=== PATIENT | female | born 1955 | race Caucasian/White ===

== ENCOUNTER 2020-12-01 14:24 | Emergency (ER) | payer SELFPAY ==
[~2020-12-01] VITALS: Ht 162.6 cm; Wt 63.5 kg
[~2020-12-01 14:24] MED LIST: AMIT1TAB92 PO; ESCI-28 PO; LEVO75TA6 PO
[2020-12-01] MEDS ORDERED: KETOROLAC TROMETH 60MG/2ML VIAL IM ONE (17:30)
[2020-12-01 18:11] VITALS: BP 124/76
== END 2020-12-01 18:14 | disposition home or self-care (01) ==
LOC: ER 14:24
DX: R51.9 Headache, unspecified (principal); F41.9 Anxiety disorder, unspecified; F32.9 Major depressive disorder, single episode, unspecified; Z90.49 Acquired absence of other specified parts of digestive tract
CPT/HCPCS: 70450; 96372; 99284; J1885

== ENCOUNTER 2024-09-13 02:00 | Inpatient (IN) | payer OTHER ==
[~2024-09-13] VITALS: Ht 162.6 cm; Wt 63.5 kg
[~2024-09-13 02:00] MED LIST changes: -ESCI-28 PO; +ESCI1TAB36 PO
--- NOTE | 2024-09-13 02:12 | ED.PDOC ---
HPI Comments 68 year old female came to ER via EMS for chest pains. Patient has history of anxiety and fibromyalgia. Patient was asleep and about an hour ago she woke up due to sudden onset chest pains, diffuse, heavy radiating to her back and associated with shortness of breath Chief Complaint: Chest Pains Time Seen by MD: 02:12 Primary Care Provider: AVANI Russell Notes: Nurses Notes Allergies: Coded Allergies: Levofloxacin (Verified Allergy, Unknown, 12/01/20) Lidocaine (Verified Allergy, Unknown, 12/01/20) Sulfa Antibiotics (Verified Allergy, Unknown, 05/06/17) Home Meds Reported Medications Escitalopram Oxalate (ESCITALOPRAM OXALATE) 10 Mg Tab, 10 MG PO, TAB 05/06/17 Levothyroxine Sodium (Levothyroxine Sodium) 75 Mcg Tab, 75 MCG PO, TAB 05/06/17 Amitriptyline HCl (Elavil) 25 Mg Tab, 50 MG PO, TAB 05/06/17 Information Source: Patient Mode of Arrival: EMS Severity: Moderate Timing: Minutes Duration: Since onset Location: Chest (R), Chest (L) Quality: Heavy Onset: At Rest Cardiac Risk Factors: None History of: Similar pain in past Modifying Factors: Nothing Associated Signs and Symptoms: SOB Past Medical History PAST MEDICAL HISTORY: Anxiety, Depression, Thyroid Past Medical History (Other): Fibromyalgia Surgical History: Cholecystectomy TALENT MANAGEMENT SPECIALIST History: No Pertinent TALENT MANAGEMENT SPECIALIST History Family History Family History: Reviewed,noncontributory to illness Social History Smoker: Non-Smoker Alcohol: Denies ETOH Use Drugs: Denies Drug Use Lives In: Home Constitutional: denies: chills, diaphoresis, fatigue, fever, malaise, sweats, weakness, others EENTM: denies: blurred vision, double vision, ear bleeding, ear discharge, ear drainage, ear pain, ear ringing, eye pain, eye redness, hearing loss, mouth pain, mouth swelling, nasal discharge, nose bleeding, nose congestion, nose pain, photophobia, tearing, throat pain, throat swelling, voice changes, others Respiratory: denies: cough, hemoptysis, orthopnea, SOB at rest, shortness of breath, SOB with excertion, stridor, wheezing, others Cardiovascular: reports: chest pain, Dyspnea on exertion; denies: dizzy spells, diaphoresis, edema, irregular heart beat, left arm pain, lightheadedness, palpitations, PND, syncope, others Gastrointestinal: denies: abdomen distended, abdominal pain, blood streaked bowels, constipated, diarrhea, dysphagia, difficulty swallowing, hematemesis, melena, nausea, poor appetite, poor fluid intake, rectal bleeding, rectal pain, vomiting, others Genitourinary: denies: abnormal vagina bleeding, burning, dyspareunia, dysuria, flank pain, frequency, hematuria, incontinence, pain, , vagina discharge, urgency, others Neurological: denies: dizziness, fainting, headache, left sided numbness, left sided weakness, numbness, paresthesia, pre-existing deficit, right sided numbness, right sided weakness, seizure, speech problems, tingling, tremors, weakness, others Musculoskeletal: reports: back pain; denies: gout, joint pain, joint swelling, muscle pain, muscle stiffness, neck pain, others Integumetry: denies: bruises, change in color, change in hair/nails, dryness, laceration, lesions, lumps, rash, wounds, others Allergic/Immunocompromised: denies: Difficulty Healing, Frequent Infections, Hives, Itching, others Hematologic/Lymphatic: denies: anemia, blood clots, easy bleeding, easy bruising, swollen glands, others Endocrine: denies: excessive hunger, excessive sweating, excessive thirst, excessive urination, flushing, intolerance to cold, intolerance to heat, unexplained weight gain, unexplained weight loss, others Psychiatric: denies: anxiety, bipolar disorder, depression, hopeless, panic disorder, schizophrenia, sleepless, suicidal, others Physical Exam General Appearance: No Apparent Distress, Normal HEENT: Normal ENT Inspection, Pharynx Normal, TMs Normal Neck: Full Range of Motion, Non-Tender, Normal, Normal Inspection Respiratory: Chest Non-Tender, Lungs Clear, No Accessory Muscle Use, No Respiratory Distress, Normal Breath Sounds Cardiovascular: No Edema, No JVD, No Murmur, No Gallop, Normal Peripheral Pulses, Regular Rate/Rhythm Breast Exam: Deferred Gastrointestinal: No Organomegaly, Non Tender, No Pulsatile Mass, Normal Bowel Sounds, Soft Genitalia: Deferred Pelvic: Deferred Rectal: Deferred Extremities: No calf tenderness, Normal capillary refill, Normal inspection, Normal range of motion, Non-tender, No pedal edema Musculoskeletal : Apperance: Normal Neurologic: Alert, piggyback clerk II-XII nml as Tested, No Motor Deficits, Normal Affect, Normal Mood, No Sensory Deficits Cerebellar Function: Normal Reflexes: Normal Skin: Dry, Normal Color, Warm Lymphatic: No Adenopathy Was a procedure done? Was a procedure done?: No CP Differential Dx Differential Diagnosis: Angina, Anxiety / Panic Attack, Hyperthyroidism, Hyperventilation Differential Diagnosis: Angina, Chest Wall Pain, Costochondritis, Esophageal reflux/spasm, Gastritis, Myocardial Infarction, Pneumonia X-Ray, Labs, Meds, VS Vital Signs Date Time Temp Pulse Resp B/P (MAP) Pulse Ox O2 Delivery O2 Flow Rate FiO2 09/13/24 02:59 78 09/13/24 02:06 79 09/13/24 02:05 98.2 86 18 156/70 (98) 98 98.2 Lab Test 09/13/24 02:55 09/13/24 02:11 Range/Units Troponin I High Sensitivity < 3 L < 3 L </=34 ng/L White Blood Count 5.9 4.4-10.8 10^3/uL Red Blood Count 4.59 4.0-5.20 10^6/uL Hemoglobin 13.6 12.2-16.2 g/dL Hematocrit 41.7 36.0-46.0 % Mean Corpuscular Volume 90.8 80.0-100.0 fL Mean Corpuscular Hemoglobin 29.7 28.0-32.0 pg Mean Corpuscular Hemoglobin Concent 32.8 32.0-36.0 g/dL Red Cell Distribution Width 14.3 11.8-14.3 % Platelet Count 184 140-450 10^3/uL Mean Platelet Volume 8.6 6.9-10.8 fL Neutrophils (%) (Auto) 55.4 37.0-80.0 % Lymphocytes (%) (Auto) 34.1 10.0-50.0 % Monocytes (%) (Auto) 8.6 0.0-12.0 % Eosinophils (%) (Auto) 1.2 0.0-7.0 % Basophils (%) (Auto) 0.7 0.0-2.0 % Neutrophils # (Auto) 3.3 1.6-8.6 10 ^3/uL Lymphocytes # (Auto) 2.0 0.4-5.4 10 ^3/uL Monocytes # (Auto) 0.5 0-1.3 10 ^3/uL Eosinophils # (Auto) 0.1 0-0.8 10 ^3/uL Basophils # (Auto) 0 0-0.2 10 ^3/uL Nucleated Red Blood Cells 0.0 % Sodium Level 143 136-145 mmol/L Potassium Level 4.4 3.5-5.1 mmol/L Chloride Level 111 H 98-107 mmol/L Carbon Dioxide Level 26 20-31 mmol/L Anion Gap 6 5-15 Blood Urea Nitrogen 13 9-23 mg/dL Creatinine 0.94 0.550-1.02 mg/dL Glomerular Filtration Rate Calc 65 >90 mL/min BUN/Creatinine Ratio 13.8 10.0-20.0 Serum Glucose 106 74-106 mg/dL Calcium Level 9.8 8.7-10.4 mg/dL Current Medications Medications (Trade) Dose Ordered Sig/[place]arrison Route Start Time Stop Time Status Last Admin Aspirin 324 mg ONCE ONCE PO 09/13/24 02:15 09/13/24 02:16 DC 09/13/24 02:31 Time of 1ST Reevaluation: 02:06 Reevaluation 1ST: Unchanged Time of 2ND Reevaluation: 03:24 Reevaluation 2ND: Improved Patient Education/Counseling: Diagnosis, Treatment, Prognosis, Need For Follow Up Family Education/Counseling: No Family Present Additional Information -Reviewed patient's previous visit(s): 05/05- admitted and diagnosed with atypical chest pains 2 anxiety and fibromyalgia - The following tests were ordered, and results were reviewed by me: - Additional information was gathered from interviewing the following independent Historian: - I reviewed and agreed with the following test results read by other provider: - I discussed treatments and results with medical personnel and: patient Comprehensive systems review obtained and negative except for what is stated in the HPI. Departure 1 Departure Time of Disposition: 03:43 Impression: Primary Impression: Unstable angina Disposition: 09 ADMITTED INPATIENT Admit to: Tele Condition: Stable Discharged With: Self Critical Care Note Critical Care Time?: Yes (35 min-critical care time only) Critical care comment: Due to concerns for patients condition deteriorating, the care required my highest level of attention and readiness to intervene. I assessed the patient, reviewed the medical records, ordered the appropriate tests and treatments, then reassessed for results and responsiveness. I communicated with medical personnel and consultants and formulated a plan of care. Total critical care time excludes any procedures Stability Stability form required: No Heart Score Heart Score: Heart Score Response (Comments) Value History Highly Suspicious 2 EKG Repolarization Disturb 1 Age >65 2 Risk Factors 1 or 2 risk factors 1 Troponin Normal limit 0 Total 6 I personally scribed for GISELLE HOGAN MD ([email or web address]) on 09/13/24 at 02:12. Electronically submitted by Earnest Westfall ([facility]). GISELLE HOGAN MD Sep 13, 2024 02:12
--- NOTE | 2024-09-13 02:15 | ECG ---
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
[2024-09-13 02:29] LABS: Basophils # (auto) 0 10 ^3/uL (0-0.2); Basophils % (auto) 0.7 % (0.0-2.0); Eosinophils # (auto) 0.1 10 ^3/uL (0-0.8); Eosinophils % (auto) 1.2 % (0.0-7.0); Hematocrit 41.7 % (36.0-46.0); Hemoglobin 13.6 g/dL (12.2-16.2); Lymphocytes % (auto) 34.1 % (10.0-50.0); Mean Corpuscular Hemoglobin 29.7 pg (28.0-32.0); Mean Corpuscular Hgb Conc. 32.8 g/dL (32.0-36.0); Mean Corpuscular Volume 90.8 fL (80.0-100.0); Monocytes # (auto) 0.5 10 ^3/uL (0-1.3); Monocytes % (auto) 8.6 % (0.0-12.0); Neutrophils # (auto) 3.3 10 ^3/uL (1.6-8.6); Neutrophils % (auto) 55.4 % (37.0-80.0); Platelet Count (auto) 184 10^3/uL (140-450); Red Blood Cells 4.59 10^6/uL (4.0-5.20); Red Cell Distribution Width 14.3 % (11.8-14.3); White Blood Cell 5.9 10^3/uL (4.4-10.8)
[2024-09-13] MEDS: ASPirin 81 mg TAB PO ONE (02:31)
[2024-09-13 02:37] LABS: Potassium 4.4 mmol/L (3.5-5.1); Sodium 143 mmol/L (136-145)
[2024-09-13 02:38] LABS: Anion Gap 6 (5-15); Carbon Dioxide 26 mmol/L (20-31)
[2024-09-13 02:39] LABS: Calcium 9.8 mg/dL (8.7-10.4)
--- NOTE | 2024-09-13 02:41 | DVH ---
CHEST RADIOGRAPH Indication: cp Technique: Single frontal view of the chest was obtained COMPARISON: None FINDINGS: Lines and Tubes: None Lungs: Clear Pleura: No effusion. No pneumothorax. Cardiomediastinal contours: Unremarkable Bones: Unremarkable IMPRESSION: 1. No acute disease.
[2024-09-13 02:43] LABS: Glucose 106 mg/dL (74-106)
[2024-09-13 02:44] LABS: BUN/Creatinine Ratio 13.8 (10.0-20.0); Blood Urea Nitrogen 13 mg/dL (9-23)
[2024-09-13 02:46] LABS: Chloride 111 mmol/L (98-107)
[2024-09-13] MEDS ORDERED: ACETAMINOPHEN 325 MG TAB PO PRN (04:30)
[2024-09-13] MEDS ORDERED: ONDANSETRON HCL 4 MG/2 ML VIAL IV PRN (04:30)
[2024-09-13] MEDS ORDERED: NITROGLYCERIN 0.4 MG SL TAB SL PRN (04:30)
[2024-09-13] MEDS ORDERED: HYDROcodone-ACET 5/325MG TAB PO PRN (04:30)
[2024-09-13] MEDS ORDERED: MORPHINE SULFATE INJ 2 MG/ml SYRG IV PRN (04:30)
[2024-09-13 04:37] VITALS: PULSE 83; RESP 11; O2SAT 100
--- NOTE | 2024-09-13 04:51 | DVHHP2 ---
Admitting Diagnosis: Chest Pain rule out ACS History of Present Illness History Source: Patient Exam Limitations: No limitations HPI Mrs. Jackie Barajas is a 68 year old female with a history of hypercholesteremia , anxiety disorder , fibromyalgia who presents with a chief complaint of chest pains. Patient reports she was asleep and she woke up due to sudden onset chest pains, diffuse, heavy radiating to her back and shoulders and associated with shortness of breath. Patient endorses pain is pressure in nature. Patient endorses she last saw a cardiologists about 6 years ago for chest pain but was cleared. Patient denies SI, nausea, vomiting, headaches, palpitations, abdominal pain, fevers, chills. Patient admitted for further evaluation. Home Meds Reported Medications Alendronate Sodium (Alendronate Sodium) 70 Mg Tab, 1 TAB PO QWEEKLY 09/13/24 Amitriptyline HCl (Amitriptyline Hydrochlori) 50 Mg Tab, 1 TAB PO 09/13/24 Citalopram Hydrobromide (Citalopram Hydrobromide) 40 Mg Tab, 1 TAB PO DAILY 09/13/24 Atorvastatin Calcium (ATORVASTATIN CALCIUM) 20 Mg Tab, 1 TAB PO DAILY 09/13/24 Escitalopram Oxalate (ESCITALOPRAM OXALATE) 10 Mg Tab, 10 MG PO, TAB 05/06/17 Levothyroxine Sodium (Levothyroxine Sodium) 75 Mcg Tab, 75 MCG PO, TAB 05/06/17 Amitriptyline HCl (Elavil) 25 Mg Tab, 50 MG PO, TAB 05/06/17 Past Medical History Cardiac: Other (high cholesterol) Pulmonary: No pertinent Hx Central Nervous System: No pertinent Hx GI: No pertinent Hx Hemotology/Oncology: No pertinent Hx Hepatobiliary: No pertinent Hx Psychiatric: Anxiety Musculoskeletal: No pertinent Hx Rheumotologic: Fibromyalgia Infectious Disease: No peritnent Hx ENT: No pertinent Hx Renal/: No pertinent Hx Endocrine: No pertinent Hx Dermatology: No pertinent Hx Smoker: No Hx (Negative) Alocohol: None Drugs: None Lives with: With family Domestic Violence: Neg Review of Systems Constitutional: No symptom reported Ears, Nose, & Throat: No symptom reported Eyes: No symptom reported Pulmonary/Respiratory: Dyspnea Cardiovascular: Chest Pain Gastrointestinal: No symptom reported Genitourinary: No symptom reported Musculoskeletal: No symptom reported Skin: No symptom reported Psychiatric: No symptom reported Endocrine: No symptom reported Hemotologic/Lymphatic: No symptom reported H&P Exam Vital Signs Vital Signs Date Time Temp Pulse Resp B/P (MAP) Pulse Ox O2 Delivery O2 Flow Rate FiO2 09/13/24 02:59 78 09/13/24 02:05 98.2 18 156/70 (98) 98 98.2 General Appeara: Well developed, Well nourished, Normal Appearance Head Exam: Normal inspection Neck Exam: Normal inspection, Non-tender, Normal alignment Eye Exam: bilateral eye Normal inspection, bilateral eye PERRL, bilateral eye EOMI Ear Exam: bilateral ear Auricle normal Nasal Exam: Normal inspection Mouth: Normal Inspection Pulmonary/Respiratory: Normal inspection, Normal breath sounds, Chest non- tender, Lungs clear Cardiovascular/Chest: Normal inspection, Regular rate, Normal Rhythm Peripheral Pulses: 2+ dorsalis pedis (R), 2+ dorsalis pedis (L), 2+ Radial (R), 2+ Radial (L) Abdominal Exam: Normal bowel sounds, Soft Rectal Exam: Deferred Back Exam: Normal inspection Shoulder Exam: Normal inspection, Non-tender, Normal 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: Normal hearing, Normal speech, PERRL Motor/Sensory: Normal sensory function, Normal motor function Neuro/Mental St: Alert, Oriented, Other (labile, crying) Appearance: Appropriate appearance Eye contact/ Speech: Cooperative, Normal speech, Avoids eye contact Skin Exam: Normal inspection, Normal color, Warm/dry Labs/Xrays Labs Test 09/13/24 02:55 09/13/24 02:11 Range/Units Troponin I High Sensitivity < 3 L </=34 ng/L White Blood Count 5.9 4.4-10.8 10^3/uL Red Blood Count 4.59 4.0-5.20 10^6/uL Hemoglobin 13.6 12.2-16.2 g/dL Hematocrit 41.7 36.0-46.0 % Mean Corpuscular Volume 90.8 80.0-100.0 fL Mean Corpuscular Hemoglobin 29.7 28.0-32.0 pg Mean Corpuscular Hemoglobin Concent 32.8 32.0-36.0 g/dL Red Cell Distribution Width 14.3 11.8-14.3 % Platelet Count 184 140-450 10^3/uL Mean Platelet Volume 8.6 6.9-10.8 fL Neutrophils (%) (Auto) 55.4 37.0-80.0 % Lymphocytes (%) (Auto) 34.1 10.0-50.0 % Monocytes (%) (Auto) 8.6 0.0-12.0 % Eosinophils (%) (Auto) 1.2 0.0-7.0 % Basophils (%) (Auto) 0.7 0.0-2.0 % Neutrophils # (Auto) 3.3 1.6-8.6 10 ^3/uL Lymphocytes # (Auto) 2.0 0.4-5.4 10 ^3/uL Monocytes # (Auto) 0.5 0-1.3 10 ^3/uL Eosinophils # (Auto) 0.1 0-0.8 10 ^3/uL Basophils # (Auto) 0 0-0.2 10 ^3/uL Nucleated Red Blood Cells 0.0 % Sodium Level 143 136-145 mmol/L Potassium Level 4.4 3.5-5.1 mmol/L Chloride Level 111 H 98-107 mmol/L Carbon Dioxide Level 26 20-31 mmol/L Anion Gap 6 5-15 Blood Urea Nitrogen 13 9-23 mg/dL Creatinine 0.94 0.550-1.02 mg/dL Glomerular Filtration Rate Calc 65 >90 mL/min BUN/Creatinine Ratio 13.8 10.0-20.0 Serum Glucose 106 74-106 mg/dL Calcium Level 9.8 8.7-10.4 mg/dL Assessment/Plan Problem List: (1) Chest pain Plan This is a 68 yo female with a known history of anxiety , fibromyalgia, high cholesterol who presents to the hospital with sudden onset chest pain radiating to her back and shoulders. 1. chest pain rule out ACS 2. High cholesterol 3. Anxiety 4. Fibromyalgia Plan Admit Telemetry unit Cardiology consultation , 2D echo, serial troponin levels, ASA, Statin Continue home medications when reconciled Tele Psych consultation Discussed all above with patient who verbalizes agreement and understanding of care plan. All questions were answered. Discussed with supervising MD. Plan discussed with: Patient, Other Code Visit Code Visit Total Time (mins): 45 Additional Comments Additional Comments Additional Comments Patient was seen and evaluated by me. I agree with the assessment and plan as outlined by my nurse practitioner. LIVIER ROBLERO [facility] Sep 13, 2024 04:51 AIDE STOUT MD 30, 2025 14:30
[2024-09-13 04:57] LABS: Magnesium 2.1 mg/dL (1.6-2.6)
[2024-09-13] MEDS: LORazepam 2MG/ML-1ML VIAL IV ONE (05:30)
[2024-09-13 06:11] VITALS: BP 115/63; PULSE 77; RESP 18; TEMP 97.7; O2SAT 97
[2024-09-13] MEDS: LEVOTHYROXINE SODIUM 25 MCG TAB PO SCH (06:16)
--- NOTE | 2024-09-13 06:27 | ECG ---
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
--- NOTE | 2024-09-13 06:27 | ECG ---
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
[2024-09-13] MEDS ORDERED: CITA-73 PO (06:37)
[2024-09-13] MEDS ORDERED: ATOR20TA50 PO (06:37)
[2024-09-13] MEDS ORDERED: ALEN70TA74 PO (06:37)
[2024-09-13] MEDS ORDERED: AMIT-256 PO (06:37)
[2024-09-13 08:00] VITALS: PULSE 88
[2024-09-13] MEDS: ASPirin 81 mg TAB PO SCH (10:00)
[2024-09-13] MEDS: AMITRIPTYLINE HCL 25 MG TAB PO SCH (10:00)
[2024-09-13] MEDS: FAMOTIDINE 20 MG TAB PO SCH (10:12)
[2024-09-13] MEDS: ENOXAPARIN SOD 40 MG/0.4 ML SYRINGE SC SCH (10:13)
[2024-09-13 12:40] VITALS: BP 115/59; PULSE 71; RESP 17; TEMP 98.1; O2SAT 99
[2024-09-13 13:12] LABS: Urine Bacteria None Seen /hpf (None Seen)
[2024-09-13 13:27] LABS: Urine Blood Negative /uL (Negative); Urine Clarity Clear (Clear); Urine Protein, UAD Negative (Negative); Urine Specific Gravity 1.006 (1.001-1.035); Urine Squamous Epithelial Cell None Seen /hpf (<5); Urine Urobilinogen Normal (Negative)
[2024-09-13 13:35] LABS: Urine Color STRAW (Yellow)
--- NOTE | 2024-09-13 14:34 | DVHDS2 ---
Discharge Summary Date of Admission Sep 13, 2024 at 04:26 Date of Discharge: Sep 13, 2024 Labs/Diagnostic Data: Laboratory Results Test 09/13/24 14:11 09/13/24 11:00 09/13/24 02:55 09/13/24 02:11 Urine Color Straw (Yellow) Urine Clarity Clear (Clear) Urine pH 7.0 (5.0-9.0) Urine Specific [place] 1.006 (1.001-1.035) Urine Protein Negative (Negative) Urine Ketones Negative (Negative) Urine Blood Negative /uL (Negative) Urine Nitrite Negative (Negative) Urine Bilirubin Negative (Negative) Urine Urobilinogen Normal mg/dL (Negative) Urine Leukocyte Esterase Negative /uL (Negative) Urine RBC <1 /hpf (0 - 4) Urine Microscopic WBC /HPF (0-5) Urine Squamous Epithelial Cells None seen /hpf (<5) Urine Bacteria None seen /hpf (None Seen) Urine Glucose Normal mg/dL (Normal) Magnesium Level 2.1 mg/dL (1.6-2.6) Triglycerides Level 112 mg/dL (< 150) Cholesterol Level 135 mg/dL (< 200) LDL Cholesterol 63 mg/dL (< 100) HDL Cholesterol 52 mg/dL (40-59) White Blood Count 5.9 10^3/uL (4.4-10.8) Red Blood Count 4.59 10^6/uL (4.0-5.20) Hemoglobin 13.6 g/dL (12.2-16.2) Hematocrit 41.7 % (36.0-46.0) Mean Corpuscular Volume 90.8 fL (80.0-100.0) Mean Corpuscular Hemoglobin 29.7 pg (28.0-32.0) Mean Corpuscular Hemoglobin Concent 32.8 g/dL (32.0-36.0) Red Cell Distribution Width 14.3 % (11.8-14.3) Platelet Count 184 10^3/uL (140-450) Mean Platelet Volume 8.6 fL (6.9-10.8) Neutrophils (%) (Auto) 55.4 % (37.0-80.0) Lymphocytes (%) (Auto) 34.1 % (10.0-50.0) Monocytes (%) (Auto) 8.6 % (0.0-12.0) Eosinophils (%) (Auto) 1.2 % (0.0-7.0) Basophils (%) (Auto) 0.7 % (0.0-2.0) Neutrophils # (Auto) 3.3 10 ^3/uL (1.6-8.6) Lymphocytes # (Auto) 2.0 10 ^3/uL (0.4-5.4) Monocytes # (Auto) 0.5 10 ^3/uL (0-1.3) Eosinophils # (Auto) 0.1 10 ^3/uL (0-0.8) Basophils # (Auto) 0 10 ^3/uL (0-0.2) Nucleated Red Blood Cells 0.0 % Sodium Level 143 mmol/L (136-145) Potassium Level 4.4 mmol/L (3.5-5.1) Chloride Level 111 mmol/L (98-107) Carbon Dioxide Level 26 mmol/L (20-31) Anion Gap 6 (5-15) Blood Urea Nitrogen 13 mg/dL (9-23) Creatinine 0.94 mg/dL (0.550-1.02) Glomerular Filtration Rate Calc 65 mL/min (>90) BUN/Creatinine Ratio 13.8 (10.0-20.0) Serum Glucose 106 mg/dL (74-106) Calcium Level 9.8 mg/dL (8.7-10.4) Other Laboratory Tests 09/13/24 02:11 Brief Hx & Hospital Course: 68-year-old female with a known history of anxiety disorder and depression disorder, hypothyroidism, osteoporosis presented to the hospital with chest pain which was generalized body pain. Patient does say that she feels like she has a anxiety disorder worsening. Patient's troponins were -12 lead EKG shows no acute STT wave changes. Patient will be seen by Cardiology once cleared by Cardiology patient can be discharged with close follow up as an outpatient with the PCP as well as Psychiatry. Patient was requesting to go home patient is being discharged under stable condition. Condition at Discharge: Stable Final Diagnosis/Problems List 1. Chest pain WI ruled out 2. Anxiety disorder 3. Depression disorder currently not in decompensation 4. Hypothyroidism 5. Fibromyalgia Discharge Disposition: Home with Health Services SNF Discharge Will this Physician continue t: No Discharge Instruct/Medications Diet: Cardiac 2g Na,low cholest Activity: No Restrictions, As Tolerated Follow Up/Referral: Follow up with the PCP in 1-2 weeks Follow up with Psychiatry in 1-2 weeks Medications: Resume home medications Discharge Statement: "Patient was advised to return to the ER or call 911 if any headaches, dizziness, shortness of breath, chest pain, abdominal pain, bleeding, fevers, or worsening of medical condition. Patient was counseled about treatment plan, medications, possible side effects, patientverbalized understanding. All questions were answered to the best of my ability. This discharge took greater then 30 minutes in planning, reviewing documentation, counseling the patient, and discussing with other team members." ASSESSMENT ASSESSMENT Assessment 1. Chest pain WI ruled out 2. Anxiety disorder 3. Depression disorder currently not in decompensation 4. Hypothyroidism 5. Fibromyalgia Date of Service: Sep 13, 2024 Billing Provider: AIDE STOUT MD Common Visit Codes: NOT BILLABLE AIDE STOUT MD Sep 13, 2024 14:34
[2024-09-13 16:38] VITALS: BP 118/70; PULSE 82; RESP 15; TEMP 98.8; O2SAT 97
[2024-09-13] MEDS ORDERED: ATORVASTATIN 20 MG TAB PO SCH (22:00)
--- NOTE | 2024-09-14 08:25 | DVHSR ---
APPROVED REPORT EXAM: Two-dimensional and M-mode echocardiogram with Doppler and color Doppler. Blood Pressure: 115/63 mmHg INDICATION Chest Pain RISK FACTORS Height: 64, Weight: 139 DIMENSIONS LVDd (3.8-5.7cm)LA (2D)3.2 (1.9-4.0cm)Aortic Root3.4 (2.0-3.7cm) LVDs (2.5-4.0cm)LA (MM) (1.9-4.0cm)Aortic Cusp Exc1.6 (1.5-2.0cm) EF (%) 55.0 (55-70%)Rt. Atrium3.4 (1.9-4.0cm)Asc. Aorta cm Mitral Valve MitralMitral Stenosis E wave0.84m/sMV Mean GR.mmHg A wave0.99m/sMV Peak GR.mmHg E/A ratio0.82D MVAcm2 DECEL [id number] 1/2 [id number] IVRTmsDop MVA2.94cm2 Aortic Valve Aortic ValveAortic Stenosis V11.04m/Kenny Mean GR.4mmHg V21.49m/Kenny Peak GR.9mmHg LVOT Diameter1.8 (1.8-2.4cm)Doppler AVA1.78cm2 Pulmonic Valve V20.99m/s Tricuspid Valve TR Velocity2.06m/s PPPQ49rdSw Conclusion lvef 60% by vvisual estimate mild LVH grade 1 diastolic dysfunction normal RV function left atrium enlarged mild no severe valve abnromaliteis noted
== END 2024-09-13 19:50 | disposition home or self-care (01) | DRG 880 ==
LOC: ER 02:00 → EDBD 02:00 → OVERFLOW 04:26 → TELE-WESTW 06:11
PROVIDERS: ADMIT Nurse Practitioner Family; ATTEND Nurse Practitioner Family
DX: F41.9 Anxiety disorder, unspecified (principal); I20.0 Unstable angina; F32.A Depression, unspecified; M79.7 Fibromyalgia; E78.00 Pure hypercholesterolemia, unspecified; E03.9 Hypothyroidism, unspecified; M81.0 Age-related osteoporosis without current pathological fracture; Z88.2 Allergy status to sulfonamides; Z88.4 Allergy status to anesthetic agent; Z88.8 Allergy status to other drugs, medicaments and biological substances; Z79.899 Other long term (current) drug therapy; Z90.49 Acquired absence of other specified parts of digestive tract
CPT/HCPCS: 36415; 71045; 80048; 80061; 81001; 83735; 84484; 85025; 93005; 93306; 96374; 99291; G0378